=== PATIENT | male | born 1995 | race African-American/Black ===

== ENCOUNTER 2022-08-28 23:32 | Emergency (ER) | payer MEDICAID, OTHER ==
[~2022-08-28] VITALS: Ht 182.9 cm; Wt 78.0 kg
[2022-08-29 00:15] VITALS: BP 150/93
[2022-08-29] MEDS ORDERED: AMOXICILLIN/POTASSIUM CLAVULANATE 875/125MG TAB PO ONE (00:15)
[2022-08-29] MEDS ORDERED: LIDOCAINE HCL/PF 1% 10 MG/ML 5ML VIAL INFIL ONE (00:15)
[2022-08-29] MEDS ORDERED: BACITRACIN ZINC OINT UDPKT TOP ONE (00:15)
[2022-08-29] MEDS ORDERED: IBUPROFEN 600MG TABLET PO ONE (00:15)
[2022-08-29] MEDS ORDERED: IBUP-2029 PO (02:08)
[2022-08-29] MEDS ORDERED: AMOX1TAB16 PO (02:08)
== END 2022-08-29 02:30 | disposition home or self-care (01) ==
LOC: ER 23:53
DX: S61.401A Unspecified open wound of right hand, initial encounter (principal); W18.39XA Other fall on same level, initial encounter; Y93.89 Activity, other specified; Y92.89 Other specified places as the place of occurrence of the external cause; Y99.8 Other external cause status
CPT/HCPCS: 73130; 99284; J3490